=== PATIENT | male | born 1955 | race Caucasian/White ===

== ENCOUNTER → 2018-10-12 | Outpatient (CLI) | payer BC ==
[~2018-10-12] MED LIST: ASPIRIN E.C. 8181 MG PO; FISH OIL500 MG PO; FLOMAX 0.40.4 MG/CAP PO; GLUCOSAMINE CHO1 CAP PO; Glucosamine Chondroi PO; HCTZ 25MG TAB25 MG PO; ZESTRIL 20MG TA20 MG PO
== END ==
LOC: ZCOL.LAB 16:21
DX: Z01.812 Encounter for preprocedural laboratory examination (principal); Z86.14 Personal history of Methicillin resistant Staphylococcus aureus infection

== ENCOUNTER → 2018-11-11 | Outpatient (CLI) | payer BC | LOC: COL.LAB 14:29 | DX: Z01.812 Encounter for preprocedural laboratory examination (principal) ==

== ENCOUNTER → 2019-12-17 | Outpatient (CLI) | payer MEDICARE, BC | LOC: COL.RAD 14:29 | DX: Z01.812 Encounter for preprocedural laboratory examination (principal); C61 Malignant neoplasm of prostate; R91.1 Solitary pulmonary nodule | CPT/HCPCS: Q9967 ==

== ENCOUNTER → 2019-12-20 | Outpatient (CLI) | payer MEDICARE, BC | LOC: COL.RAD 09:28 | DX: C61 Malignant neoplasm of prostate (principal); C41.3 Malignant neoplasm of ribs, sternum and clavicle | CPT/HCPCS: A9503 ==

== ENCOUNTER → 2020-04-11 | Outpatient (CLI) | payer MEDICARE, BC | LOC: COL.RAD 10:00 | DX: C61 Malignant neoplasm of prostate (principal); R91.1 Solitary pulmonary nodule; Z87.81 Personal history of (healed) traumatic fracture; D35.01 Benign neoplasm of right adrenal gland | CPT/HCPCS: Q9967 ==

== ENCOUNTER → 2020-06-19 | Outpatient (CLI) | payer MEDICARE, BC | LOC: COL.RAD 08:07 | DX: R74.8 Abnormal levels of other serum enzymes (principal) ==